=== PATIENT | female | born 1960 | race Hispanic/Latino ===

== ENCOUNTER 2021-10-13 22:30 | Emergency (ER) | payer SELFPAY ==
[~2021-10-13] VITALS: Ht 152.4 cm; Wt 77.1 kg
[2021-10-13 22:36] VITALS: BP 151/151
[2021-10-13] MEDS ORDERED: KETOROLAC 60 MG VIAL (30MG/ML) IM ONE (23:00)
[2021-10-13] MEDS ORDERED: ACET-2247 PO (23:13)
[2021-10-13] MEDS ORDERED: KETOROLAC 60 MG VIAL (30MG/ML) ONE (23:15)
== END 2021-10-13 23:53 | disposition home or self-care (01) ==
LOC: EDH 22:30
DX: S82.831A Other fracture of upper and lower end of right fibula, initial encounter for closed fracture (principal); I10 Essential (primary) hypertension; E78.00 Pure hypercholesterolemia, unspecified; Z79.1 Long term (current) use of non-steroidal anti-inflammatories (NSAID); X58.XXXA Exposure to other specified factors, initial encounter; Y93.89 Activity, other specified; Y92.89 Other specified places as the place of occurrence of the external cause; Y99.8 Other external cause status
CPT/HCPCS: 73610; 73620; 96372; 99284; J1885